=== PATIENT | female | born 1970 | race Hispanic/Latino ===

== ENCOUNTER 2022-06-30 13:27 | Emergency (ER) | payer OTHER ==
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
[2022-06-30 16:25] VITALS: TEMP 98.9
[2022-06-30 16:35] VITALS: BP 120/72; O2SAT 98
== END 2022-06-30 16:06 | disposition home or self-care (01) ==
LOC: ER 13:27
DX: S39.012A Strain of muscle, fascia and tendon of lower back, initial encounter (principal); E11.9 Type 2 diabetes mellitus without complications; I10 Essential (primary) hypertension
CPT/HCPCS: 72100; 72170; 99283